=== PATIENT | female | born 1940 ===

== ENCOUNTER 2019-12-17 06:27 | Day surgery (SDC) | payer OTHER ==
[~2019-12-17 06:27] MED LIST: DOLOGESIC 500-1 EACH PO; SYNTH PO; VITAMIN D PO
== END 2019-12-17 10:15 | disposition home or self-care (01) ==
LOC: CIR.AMB 06:27 → ADM 10:15
DX: M51.26 Other intervertebral disc displacement, lumbar region (principal)